=== PATIENT | female | born 2000 | race Caucasian/White ===

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

== ENCOUNTER 2020-05-02 15:47 | Emergency (ER) | payer OTHER ==
[~2020-05-02] VITALS: Ht 170.2 cm; Wt 64.4 kg
[~2020-05-02 15:47] MED LIST changes: +PRED20 PO; +Vistaril25 MG PO
[2020-05-02] MEDS ORDERED: IBUP600 PO (17:11)
[2020-05-02] MEDS ORDERED: DEXT30SU PO (17:11)
== END 2020-05-02 17:16 | disposition home or self-care (01) ==
LOC: ER 15:47
DX: B34.9 Viral infection, unspecified (principal); Z87.891 Personal history of nicotine dependence
CPT/HCPCS: 99284; A9270